=== PATIENT | female | born 1980 | race Hispanic/Latino ===

== ENCOUNTER → 2020-08-27 | Outpatient (CLI) | payer OTHER ==
--- NOTE | 2020-08-27 16:45 | Diagnostic Imaging Report ---
EXAM: CT Abdomen and Pelvis WITHOUT intravenous contrast INDICATION: ^[id number] ^[id number] ^CALCULUS OF KIDNEY. COMPARISON: None. TECHNIQUE: Abdomen and pelvis were scanned utilizing a multidetector helical scanner from the lung base to the pubic symphysis without administration of IV contrast. Coronal and sagittal reformations were obtained. Routine technique was performed. IV CONTRAST: None ORAL CONTRAST: None COMPLICATIONS: None RADIATION DOSE: Total DLP: 648 mGy*cm Dose modulation, iterative reconstruction, and/or weight based adjustment of the mA/kV was utilized to reduce the radiation dose to as low as reasonably achievable. FINDINGS: LOWER THORAX: Normal. HEPATOBILIARY: Liver is diffusely hypoattenuating. Gallbladder surgically absent. Negative for biliary dilatation. No definite suspicious hepatic lesion is identified. SPLEEN: No splenomegaly. PANCREAS: No focal masses or ductal dilatation. ADRENALS: No adrenal nodules. KIDNEYS/URETERS: Negative for renal, ureteral or bladder calculus. Negative for hydronephrosis or perinephric fluid collection. No surrounding inflammatory changes are noted. Ureters are not dilated. PELVIC ORGANS/BLADDER: Urinary bladder is unremarkable. Bulky uterus is noted with large fundal fibroid. Ovaries are noted with probable bilateral cyst/follicles, left greater than right. PERITONEUM / RETROPERITONEUM: No free air or fluid. Tiny fat-containing of local hernia is noted. LYMPH NODES: No lymphadenopathy. VESSELS: Unremarkable. GI TRACT: Negative for bowel obstruction. No surrounding inflammatory changes are identified. Normal appendix is noted. Significant portion of the colon is decompressed limiting evaluation. Lack of oral and IV contrast also limits evaluation. BONES AND SOFT TISSUES: No acute osseous abnormality. Disc spaces are relatively well-maintained with mild multilevel narrowing of the lower thoracic and lumbar spine. No suspicious lytic or blastic lesion is identified. Soft tissues are unremarkable. IMPRESSION: 1. No evidence of urinary tract calculus. Negative for hydronephrosis or surrounding inflammatory changes. 2. Severe diffuse hepatic steatosis. 3. Bulky uterine fundus concerning for fibroids. 4. Left greater than right ovarian follicles/cysts, likely within normal limits for patient's age. Signed by: Stone Asif MD on 08/27/2020 4:41 PM
== END ==
LOC: CT 15:47
PROVIDERS: ATTEND Urology
DX: N20.1 Calculus of ureter (principal)
CPT/HCPCS: 74176